=== PATIENT | male | born 1940 | race Caucasian/White ===

== ENCOUNTER → 2019-09-06 | Outpatient (CLI) | payer MEDICARE, OTHER ==
[~2019-09-06] MED LIST: CHOL400T2 PO; ENOX80SY4 SQ; FAMO20TA7 PO; FENO48TA17 PO; LEVO50TA PO; METO25TA35 PO; METO50TA82 PO; NIAC500T85 PO; OMEP-110 PO; POTA20TA6 PO; SIMV20TA3 PO; WARF1TAB PO; WARF1TAB74 PO
== END | disposition home or self-care (01) ==
LOC: CVU 10:15
PROVIDERS: ATTEND Internal Medicine Cardiovascular Disease
DX: I08.8 Other rheumatic multiple valve diseases (principal); E78.5 Hyperlipidemia, unspecified; I10 Essential (primary) hypertension; J44.9 Chronic obstructive pulmonary disease, unspecified; Z95.2 Presence of prosthetic heart valve; Z87.891 Personal history of nicotine dependence; Z91.018 Allergy to other foods; Z85.46 Personal history of malignant neoplasm of prostate
CPT/HCPCS: 93306